=== PATIENT | female | born 1950 | race Caucasian/White ===

== ENCOUNTER → 2020-07-17 | Outpatient (CLI) | payer MEDICARE, OTHER ==
--- NOTE | 2020-07-20 09:29 | RADIOLOGY REPORT (SQ) ---
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 COMPARISON: None. TECHNIQUE: Multiplanar fat and fluid sensitive sequences precontrast including T1, T2 fat saturated or STIR. Post contrast T1 fat saturated sequences after IV gadolinium administration. CONTRAST TYPE AND DOSE: 20 mL Prohance. RENAL FUNCTION: Not needed. LIMITATIONS: None. FINDINGS: MASS SIGNAL CHARACTERISTICS: LOCATION: Palmar radial aspect of the long finger. Located in the subcutaneous tissues. Close to th e level of the PIP joint. No clear extension into the deeper tissues. SIGNAL CHARACTERISTICS AND ENHANCEMENT PATTERN: Intermediate T1. No increased signal on T2 sequences . No significant enhancement. MEASUREMENTS: 7 x 5 mm in the axial plane, best demonstrated on axial T1 sequences. Approximately 9 mm along the length of the finger. MARROW SIGNAL IN ADJACENT BONES: Digits are generally intact with normal marrow signal. Note is made of abnormal signal in the index finger metacarpal head and distal metacarpal shaft. Probable intrao sseous ganglion. OTHER SIGNIFICANT BONE, JOINT OR SOFT TISSUE FINDINGS: Flexion deformity at the ring finger PIP joint . 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 IMPRESSION: 1. Small mass in the region of interest ring finger. 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 No suggestion of deeper extension, lesion is restricted to the subcutaneous tissue s. 2. Flexion deformity in the ring finger PIP joint. 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 3. Other findings as above. Clinical notes suggest a lesion related to the thumb as well. If there is another soft tissue mass here, further imaging would be warranted as this area is not covered toda y. Correlation with radiographs would also be made, none available the time of this interpretation. TECHNICAL DOCUMENTATION: JOB ID: [id number] [email or web address]- All Rights Reserved Reading location - IP/workstation name: [email or web address]
== END ==
LOC: RAD 13:39
PROVIDERS: ATTEND Orthopaedic Surgery
DX: M19.041 Primary osteoarthritis, right hand (principal)
CPT/HCPCS: 82565; 73220; A9576

== ENCOUNTER 2020-11-19 07:01 | Day surgery (SDC) | payer MEDICARE, OTHER ==
[~2020-11-19 07:01] MED LIST: KETOROLAC TROMETHAMINE 0.45% 4 DROP/0.4 ML DROPERETTE OS PRN
--- OUTSIDE RECORDS SUMMARY | 2020-11-19 07:03 | XMS REPORT ---
:1950 [facility] [place] [address] [place] [address] Care Team Providers Name Role Phone [facility] Primary [facility] Physician VLAD Go Attending Clinician Unavailable GETACHEW Attending Clinician Unavailable VLAD LANDRUM Admitting Clinician Unavailable Allergies, Adverse Reactions, Alerts Allergy Name Allergy Status Severity Reaction(s) Onset Inactive Treat ing Comments Type Date Date Clinician Lisinopril Allergy to Active Rash substance Lisinopril Propensity Active Low Rash to adverse reactions Medications Ordered Filled Start Stop Current Ordering Indication Dosage Frequency Signature Comments Components Medication Medication Date Date Medication? Clinician (SIG) Name Name lactated No 10mL/h 10 mL/hr, Ringers 02-05 Intravenou infusion 11:00: s, 00 Continuous , Starting Mon02/05/19 at 1100, Pre-op (day of surgery)<b r>KVO<b r>Routine iohexol 2017-10- No 50mL 50 mL, (OMNIPAQUE) 12-20 Oral, 240 mg 11:00: 11:00 Once, Fri iodine/mL 00 :00 10/19/18 oral at 1100, solution 50 For 1 mL dose
Di lute in 900 ml of cold beverage (water, juice, Gatorade ...)
Ro utine NIFEdipine 2017-10 No NIFEdipine (ADALAT CC) 12-20 (ADALAT 30 MG 24 hr 10:52: CC) 30 MG tablet 42 24 hr tablet iohexol 2017-10- No 100mL 100 mL, (OMNIPAQUE) 12-20 Intravenou 350 mg 10:01: 10:05 s, Once in iodine/mL 06 :00 imaging, solution contrast, 100 mL Starting Mon10/19/18 at 1001, For 1 dose
Ro utine doxycycline 2017-10 No doxycyclin (VIBRA-TABS 1-09 e ) 100 MG 00:00: (VIBRA-TAB tablet 00 S) 100 MG tablet carboxymeth 2018- No 1% Administer Ad ministe ylcellulose 7-20 07-20 1 % to r 1 % t o sodium 00:00: 23:59 both eyes both eye s (REFRESH 00 :00 two (2) two (2) CELLUVISC) times a times a 1 % DpGe day as day as needed. needed. carboxymeth 2018- No 1% Administer Ad ministe ylcellulose 7-20 07-20 1 % to r 1 % t o sodium 00:00: 23:59 both eyes both eye s (REFRESH 00 :00 two (2) two (2) CELLUVISC) times a times a 1 % DpGe day as day as needed. needed. nifedipine No nifedipine ER 30 mg ER 30 mg tablet,exte tablet,ext nded ended release release doxycycline No doxycyclin hyclate 100 e hyclate mg tablet 100 mg tablet Durezol No Durezol 0.05 % eye 0.05 % eye drops drops Problems Condition Condition Condition Status Onset Resolution Last Treatin g Comments Name Details Category Date Date Treatment Clinician Date Lump on Lump on Problem Active 2019-10 finger Finger 0-12 00:00: 00 Ocular Ocular Problem Active rosacea Rosacea 07-13 00:00: 00 Hypertensiv Hypertensiv Problem Active e disorder e Disorder 07-13 00:00: 00 High blood High blood Condition Active 2017-102018-10-19 pressure pressure 2-21 10:52:08 00:00: 00 Ocular Ocular Condition Active 2017-102018-10-19 rosacea rosacea 2-21 10:52:08 00:00: 00 Rectal mass Rectal mass Condition Active 2017-102018-10-19 2-21 12:01:32 00:00: 00 Problem Not on file Condition Inactiv e Hyperlipide Hyperlipide Condition Active 2018-10-19 burt burt 12:21:43 Procedures Procedure Date / Time Performed Performing Clinician Gabriella lee FLEXIBLE SIGMOIDOSCOPY 2019-02-05 16:06:39 Jensen Chilel COLONOSCOPY 2018-11-01 09:34:[address] ABDOMEN PELVIS W CONTRAST 2018-10-19 15:05:02 Caroline Chilel ndro POCT CREATININE, INTERFACED 2018-10-19 14:57:00 Moisés Chilel annabel D&C OF CERVICAL STUMP 1969-10-30 00:00:00 Tonsillectomy [place] Teeth Extraction Results Test Description Test Time Test Comments Text Results Atomic Results Result Comments creatinine, POC 2020-07-17 00:00:00 Test Item Value Reference Range Comments creatinine, POC (test code = creatinine, POC) 1.0 mg/dL 0. 5-1.5 #[id number] 12:06:39FLEXIBLE SIGMOIDOSCOPY (02/05/2019 12:06 PM EDT)NarrativePerformed At Patient Name: Saranya SanchezProcedure Date: 02/05/2019 12:06 PMMRN: [id number] Date of : 11/03/1949Admit Type: OutpatientAge: 68Room: [place] [address] UN[facility]Gender: FemaleNote Status: FinalizedInstrument Name: [id number] Procedure: Flexible SigmoidoscopyIndications: High risk colon cancer surveillance: Personal history of adenoma (10 mm or greater in size), High risk colon cancer surveillance: Personal history of adenoma with high grade dysplasiaProviders: KAELYN GUO MD, RAMBO PRITCHETT, Tara Cantrell, TechnicianReferring MD:JENSEN CHILEL MD (Referring MD)Medicines: Propofol per AnesthesiaComplications: No immediate complications. Procedure: Pre-Anesthesia Assessment: - Prior to the procedure, a History and Physical was performed, and patient medications and allergies were re viewed. The patient's tolerance of previous anesthesia was alsoreviewed. The risks and benefits of the procedure and the sedation options and risks were discussed with the patient. All questions were answered, and informed consent was obtained. Prior Anticoagulants: The patient has taken no previous anticoagulant or antiplatelet agents. ASA Grade Assessment: III - A patient with severe systemic disease. After reviewing the risks and benefits,the patient was deemed in satisfactory condition to undergo the procedure. After obtaining informed consent, the scope was passed under direct vision. The Endoscope was introduced through the anus and advanced to the the descending colon. The flexible sigmoidoscopy was accomplished w ithout difficulty. The patient tolerated the procedure well. The quality of the bowel preparation was excellent. Findings: A few medium-mouthed diverticula were found in the sigmoid colon. A large post polypectomy scar was found in the rectum. The scar tissue was healthy in appearance. This was biopsied with a cold forceps for histology. Impression:- Diverticulosis in the sigmoid colon. - Post-polypectomy scar in the rectum. Biopsied.Recommendation:- Discharge patient to home (with escort). - Patient has a contact number available for emergencies. Thesigns and symptoms of potential delayed complications were discussed with the patient. Return to normal activities tomorrow. Written discharge instructions were provided to the patient. - Resume previous diet today. - Continue present medications. - Perform a colonoscopy in 5 years. Procedure Code(s): --- Professional --- 50438, Sigmoidoscopy, flexible; with biopsy, single or multipleDiagnosis Code(s): --- Professional --- Z98.890, Other specified postprocedural states Z86.010, Personal history of colonic polyps K57.30, Diverticulosis of large intes bonnie without perforation or abscess without bleeding CPT copyright 2017 [employer]. All rights reserved. The codes documented in this report are preliminary and upon personal clothing laundry aide review may be revised to meet current compliance requirements.Attending Participation: I personally performed the entire procedure. Electronically Signed By Kaelyn Landrum MD KAELYN LANDRUM MD02/05/2019 12:20:39 PMThe attending physician was present throughout the entire procedure including insertion, viewing, and removal.Number of Addenda: 0 Note Initiated On: 02/05/2019 12:06 [facility] RADProcedure NoteInterface, Rad Results In - 02/05/2019 12:21 PM EDT Patient Name: Saranya Sanchez Procedure Date: 02/05/2019 12:06 PM Date of : 1950 Admit Type: Outpatient Age: 68 Room: [place] [address] [facility]Gender: Female Note Status: Finalized Instrument Name: [id number] Procedure: Flexible Sigmoidoscopy Indications: High risk colon cancer surveillance: Personal history of adenoma (10 mm or greater in size), High riskcolon cancer surveillance: Personal history of adenoma with high grade dysplasia Providers: KAELYN LANDRUM MD, Tara KELLEY, Heavy Media Operator Referring MD: JENSEN CHILEL MD (Referring MD) Medicines: Propofol per Anesthesia Complications: No immediate complications. Procedure: Pre-Anesthesia Assessment: - Prior to the procedure, a History and Physical was performed, and patient medications and allergies were reviewed. The patient's tolerance of previous anesthesia was also reviewed. The risks andbenefits of the procedure and the sedation options and risks were discussed with the patient. All questions were answered, and informed consent was obtained. Prior Anticoagulants: The patient has takenno previous anticoagulant or antiplatelet agents. ASA Grade Assessment: III - A patient with severe systemic disease. After reviewing the risks and benefits, the patient was deemed in satisfactory condition to undergo the procedure. After obtaining informed consent, the scope was passed under direct vision. The Endoscope was introduced through the anus and advanced to the the descending colon. The flexible sigmoidoscopy was accomplished without difficulty. The patient tolerated the procedure well. The quality of the bowel preparation was excellent. Findings: A few medium-mouthed diverticula were found in the sigmoid colon. A large post polypectomy scar was found in the rectum. The scar tissue was healthy in appearance. This was biopsied with a cold forceps for histology. Impression: - Diverticulosis in the sigmoid colon. - Post-polypectomy scar in the rectum. Biopsied. Recommendation: - Discharge patient to home (with escort). - Patient has a contact number available for emergencies. The signs and symptoms of potential delayed complications were discussed with the patient. Return to normal activities tomorrow. Written discharge instructions were provided to the patient. - Resume previous diettoday. - Continue present medications. - Perform a colonoscopy in 5 years. Procedure Code(s): --- Professional --- 54820, Sigmoidoscopy, flexible; with biopsy, single or multiple Diagnosis Code(s): ---Professional --- Z98.890, Other specified postprocedural states Z86.010, Personal history of colonicpolyps K57.30, Diverticulosis of large intestine without perforation or abscess without bleeding CPTcopyright 2017 [employer]. All rights reserved. The codes documented in this report are preliminary and upon personal clothing laundry aide review may be revised to meet current compliance requirements. Attending Participation: I personally performed the entire procedure. Electronically Signed By Kaelyn Landrum MD KAELYN LANDRUM MD 02/05/2019 12:20:39 PM The attending physician was present throughout the entire procedure including insertion, viewing, and removal. Number of Addenda: 0Note Initiated On: 02/05/2019 12:06 PMPerforming OrganizationAddressCity/State/ZipcodePhone NumberC [id number] [place], [place] [id number] 09:34:01COLONOSCOPY (11/01/2018 9:34 AM) Narrative Performed At Patient Name: Saranya SanchezProcedrico Date: 11/01/2018 9:34 AM Date of : 1950 Admit Type: OutpatientAge: Room: [place] [address] UN[facility]Gender: Female Note Status: FinalizedInstrument Name: [id number] Procedure: Colonoscopy Indications: Therapeutic procedure for colon polyps Providers: KAELYN LANDRUM MD, SUZY ZELAYA, ALLY, Kali Dalton, Heavy Media Operator, NAGI HUBBARD MD (Fellow), MERRY MERRITT MD (Fellow) Referring MD:JENSEN CHILEL MD (Referring MD) Medicines: Monitored Anesthesia Care Complications: No immediate complications. Procedure: Pre-Anesthesia Assessment: - Prior to the procedure, a History and Physical was performed, and patient medications and allergies were reviewed. The patient's tolerance of previous anesthesia was also reviewed. The risks and benefits of the procedure and the sedation options and risks were discussed with the patient. All questions were answered, and informed consent was obtained. Prior Anticoagulants: The patient hastaken no previous anticoagulant or antiplatelet agents. ASA Grade Assessment: II - A patient with mild systemic disease. After reviewing the risks and benefits, the patient was deemed in satisfactory condition to undergo the procedure. After obtaining informed consent, the scope was passed under direct vision. Throughout the procedure, the patient's blood pressure, pulse, and oxygen saturations were monitored continuously. The Colonoscope was introduced through the anus and advanced to the cecum, identified by appendiceal orifice and ileocecal valve. The Endoscope was introduced through the anus and advanced to the sigmoid colon for evaluation. This was the intended extent. The colonoscopy was performed without difficulty. The patient tolerated the procedure well. The quality of the bowel preparation was excellent. The ileocecal valve, appendiceal orifice, and rectum were p hotographed. Findings: The [place] digital rectal examinations were normal. A 5 mm polyp was found in the sigmoid colon. The polyp was sessile. The polyp was removed with a hot snare. Resection and retrieval were complete. A 8cm polyp was found at 10 cm proximal to the anus. The polyp was semi-pedunculated and sessile. Preparations were made for mucosal resection. 15 mL of Orise was injected with adequate lift of the lesion from the muscularis propria. Snare mucosal resection with Yin net retrieval was performed. An 80 mm area was resected. Resection and retrieval were complete. There was no bleeding at the end of the maneuver. Biopsies were taken with a cold forceps for histology from the base of polyp to exclude malignancy andplaced in a separate container from the polypectomy. Impression:- One 5 mm polyp in the sigmoid colon, removed with a hot snare. Resected and retrieved. - One 8cm polyp at 10 cm proximal to the anus, removed using injection-lift and a hot snare. Resected and retrieved. - Biopsies were taken with a cold forceps for histology from the base of polyp to exclude malignancy. Recommendation:- Discharge patient to home (with escort). - Patient has a contact number available for emergencies. The signs and symptoms of potentialdelayed complications were discussed with the patient. Return to normal activities tomorrow. Written discharge instructions were provided to the patient. - Resume previous diet today. - Avoid aspirin and other NSAIDS for 7 days. - Continue present medications. - Await pathology results. - Repeat colonoscopy in 3-6 months for surveillance. Procedure Code(s): --- Professional --- 97144, 59,52, Colonoscopy, flexible; with endoscopic mucosal resection 34982, 52, Colonoscopy, flexible; with removal of tumor(s), polyp(s), or other lesion(s) by snare technique Diagnosis Code(s): --- Professional --- D12.5, Benign neoplasm of sigmoid colon K63.5, Polyp of colon CPT copyright 2017 [employer]. All rights reserved. The codes documented in this report are preliminary and upon personal clothing laundry aide review may be revised to meet current com pliance requirements. Attending Participation: I was present and participated during the entire procedure, including non-becerra portions. Electronically Signed By Kaelyn Landrum MD KAELYN LANDRUM MD 11/01/2018 1:20:00 PM The attending physician was present throughout the entire procedure including insertion, viewing, and removal. MD Nagi PRABHAKAR MD NAGI HUBBARD MD 11/01/2018 11:41:22 AM Number of Addenda: 0 Note Initiated On: 11/01/2018 9:34 AM [facility] Procedure Note Interface, Rad Results In - 11/01/2018 1:20 PM EST ____ Patient Name: Saranya Sanchez Procedure Date: 11/01/2018 9:34 AM Date of : 1950 Admit Type: Outpatient Age: 68 Room: [address] Gender: Female Note Status: Finalized Instrument Name: [id number] ____ Procedure: Colonoscopy Indications: Therapeutic procedure for colon polyps Providers: KAELYN LANDRUM MD, SUZY ZELAYA RN, Kali Dalton, Heavy Media Operator, NAGI HUBBARD MD (Fellow), MERRY MERRITT MD (Fellow) Referring MD: JENSEN CHILEL MD (Referring MD) Medicines: Joy tored Anesthesia Care Complications: No immediate complications. ____ Procedure: Pre-Anesthesia Assessment: - Prior to the procedure, a History and Physical was performed, and patient medications and allergies were reviewed. The patient's tolerance of previous anesthesia was also reviewed. The risks and benefits of the procedure and the sedation options and risks were discussed with the patient. All questions were answered, and informed consent was obtained. Prior Anticoagulants: The patient has taken no previous anticoagulant or antiplatelet agents. ASA Grade Assessment: II - A patient with mild systemic disease. After reviewing the risks and benefits, the patient was deemed in satisfactory condition to undergo the procedure. After obtaining informed consent, the scope was passed under direct vision. Throughout the procedure, the patient's blood pressure, pulse, and oxygen saturations were monitored continuously. The Colonoscope was introduced through the anus and advanced to the cecum, identified by appendiceal orifice and ileocecal valve. The Endoscope was introduced through the anus and advanced to the sigmoid colon for evaluation. This was the intended extent. The colonoscopy was performed without difficulty. The patient tolerated the procedure well. The quality of the bowel preparation was excellent. The ileocecal valve, appendiceal orifice, and rectum were photographed. Findings: The perianal and digital rectal examinations were normal. A 5 mm polyp was found in the sigmoid colon. The polyp was sessile. The polyp was removed with a hot snare. Resection and retrieval were complete. A 8cm polyp was found at 10 cm proximal to the anus. The polyp was semi-pedunculated and sessile. Preparations were made for mucosal resection. 15 mL of Orise was injected with adequate lift of the lesion from the muscularis propria. Snare mucosal resection with Yin net retrieval was performed. An 80 mm area was resected. Resection and retrieval were complete. There was no bleeding at the end of the maneuver. Biopsies were taken with a cold forceps for histology from the base of polyp to exclude malignancy and placed in a separate container from the polypectomy. Impression: - One 5 mm polyp in the sigmoid colon, removed with a hot snare. Resected and retrieved. - One 8cm polyp at 10 cm proximal to the anus, removed using injection-lift and a hot snare. Resected and retrieved. - Biopsies were taken with a cold forceps forhistology from the base of polyp to exclude malignancy. Recommendation: - Discharge patient to home (with escort). - Patient has a contact number available for emergencies. The signs and symptoms of potential delayed complications were discussed with the patient. Return to normal activities tomorrow. Written discharge instructions were provided to the patient. - Resume previous diet today. - Avoid aspirin and other NSAIDS for 7 days. - Continue present medications. - Await pathology results. - Repeat colonoscopy in 3-6 months for surveillance. Procedure Code(s): --- Professional --- 54894, 59,52, Colonoscopy, flexible; with endoscopic mucosal resection 35869, 52, Colonoscopy, flexible; with removal of tumor(s), polyp(s), or other lesion(s) by snare technique Diagnosis Code(s): --- Professional --- D12.5, Benign neoplasm of sigmoid colon K63.5, Polyp of colon CPT copyright 2017 [employer]. All rights reserved. The codes documented in this report are preliminary and upon personal clothing laundry aide review may be revised to meet current compliance requirements. Attending Participation: I was present and participated during the entire procedure, including non-becerra portions. Electronically Signed By Kaelyn Landrum MD KAELYN LANDRUM MD 11/01/2018 1:20:00 PM The attending physician was present throughout the entire procedure including insertion, viewing, and removal. MD Nagi PRABHAKAR MD NAGI HUBBARD MD 11/01/2018 11:41:22 AM Number of Addenda: 0 Note Initiated On: 11/01/2018 9:34 AM Performing Organization Address City/State/Zipcode Phone Number [facility] [address] [facility] [place] [address]#[id number] 10:47:22CT Abdomen Pelvis with contrast (10/19/2018 10:05 AM EST)SpecimenImpressionsPerformed At Enhancing polypoid lesion in the high rectum. Subcentimeter hypodensities in the liver too small to characterizeon CT. Additionally there are bilateral adrenal nodules which are indeterminate, these lesions couldbe evaluated on MRI. A 2.7 x 2 cm cystic lesion posterior to the inferior esophagus in the retrocrural space. This is likely benign and could represent a retrocrural cystic lesion versus dilated lymphatic channel. This could also be better evaluated with MRI. [facility] RADNarrativePerformed AtEXAM: CT abdomen and pelvis with contrastDATE: 10/19/2018 10:05 AMACCESSION: [id number]: 10/19/2018 10:47 AMINTERPRETATION LOCATION: [facility] [place] CLINICAL INDICATION: 68 years old Female with MALIGNANT NEOPLASM OF RECTUM-K62.9-Rectal mass COMPARISON: None TECHNIQUE: A spiral CT scan was obtained with IV contrast from the lung bases to the pubic symphysis.Images were reconstructed in the axial plane. Coronal and sagittal reformatted images were also provided for further evaluation. FINDINGS: The lung bases are clear. No pleural effusion. LIVER: Subcentimeter hypodensities are too small to characterize on CT (2:9, 21).GALLBLADDER: UnremarkableSPLEEN: UnremarkablePANCREAS:UnremarkableADRENALS: Left adrenal nodule measures 1.1 x 0.8 cm and right adrenal nodularity measures 2.6 x 0.8 cm (coronal 4:50). Bilateral adrenal glands also demonstrate diffuse thickening.KIDNEYS: No hydronephrosis. No renal calculi.: The bladder is unremarkable.Reproductive organs unremarkable. Bilateral dilatedcollateral vessels which are more prominent on the left side. BOWEL: Possible enhancing polypoid lesion measuring 5.3 x 2.9 cm in the high rectum (2:66, 5:68).Diverticulosis of the sigmoid colon without signs of diverticulitis. No evidence of bowel obstruction. The appendix is within normal limits.No free air or free fluid. VASCULATURE: The aorta, celiac, SMA, and DOROTHEA are patent and normal in caliber.Atherosclerotic calcification throughout the aorta. The portal vein, SMV and splenic vein are patent. LYMPH NODES: No enlarged lymph nodes in the abdomen or pelvis. A 2.7 x 2 cm cystic lesion posterior to the inferior esophagus in the retrocrural space. BONES/SOFT TISSUE: No acute osseous abnormality or suspicious osseous lesion. Degenerative changes in the lower lumbar spine. [facility] RADProcedure NoteInterface, Rad Results In - 10/19/2018 6:11 PM ESTEXAM: CT abdomen and pelvis with contrast DATE: 10/19/2018 10:05 AM DICTATED: 10/19/2018 10:47 AM INTERPRETATION LOCATION: [facility] [place] CLINICAL INDICATION: 68 years old Female with MALIGNANT NEOPLASM OF RECTUM-K62.9-Rectalmass COMPARISON: None TECHNIQUE: A spiral CT scan was obtained with IV contrast from the lung bases to the pubic symphysis. Images were reconstructed in the axial plane. Coronal and sagittal reformatted images were also provided for further evaluation. FINDINGS: The lung bases are clear. No pleural effusion. LIVER: Subcentimeter hypodensities are too small to characterize on CT (2:9, 21). GALLBLADDER: Unremarkable SPLEEN: Unremarkable PANCREAS:Unremarkable ADRENALS: Left adrenal nodule measures 1.1 x 0.8 cm and right adrenal nodularity measures 2.6 x 0.8 cm (coronal 4:50). Bilateral adrenal glands also demonstrate diffuse thickening. KIDNEYS: No hydronephrosis. No renal calculi. : The bladder isunremarkable. Reproductive organs unremarkable. Bilateral dilated collateral vessels which are more prominent on the left side. BOWEL: Possible enhancing polypoid lesion measuring 5.3 x 2.9 cm in the high rectum (2:66, 5:68). Diverticulosis of the sigmoid colon without signs of diverticulitis. No evidence of bowel obstruction. The appendix is within normal limits.No free air or free fluid. VASCULATURE: The aorta, celiac, SMA, and DOROTHEA are patent and normal in caliber. Atherosclerotic calcification throughout the aorta. The portal vein, SMV and splenic vein are patent. LYMPH NODES: No enlarged lymph nodes in the abdomen or pelvis. A 2.7 x 2 cm cystic lesion posterior to the inferior esophagus in theretrocrural space. BONES/SOFT TISSUE: No acute osseous abnormality or suspicious osseous lesion. Degenerative changes in the lower lumbar spine. IMPRESSION: Enhancing polypoid lesion in the high rectum. Subcentimeter hypodensities in the liver too small to characterize on CT. Additionally there are bilateral adrenal nodules which are indeterminate, these lesions could be evaluated on MRI. A 2.7 x 2 cm cystic lesion posterior to the inferior esophagus in the retrocrural space. This is likely benign and could represent a retrocrural cystic lesion versus dilated lymphatic channel. This could also be better evaluated with MRI. Performing OrganizationAddressCity/State/ZipcodePhone NumberC [id number] [facility] [place] [address]#[id number] 09:57:00 Test Item Value Reference Range Comments Creatinine Whole Blood, POC (test code = 0.9 mg/dL 0.7- 1. 1 mg/dL Creatinine Whole Blood, POC) eGFR MDRD Af Amer (test code = eGFR MDRD Af >=60 >=60 mL/min/1.73m2 Amer) eGFR MDRD Non Af Amer (test code = eGFR MDRD >=60 >=6 0 mL/min/1.73m2 Non Af Amer) Assessments Condition Name Status Diagnosis Date Treating Clinici an Lump on finger Active 2020-08-10 10:44:09 Lump on finger Active 2020-07-13 14:09:25 Encounters Start End Encounter Admission Attending Care Care Encounter Date/Time Date/Time Type Type Clinicians Facility Department ID 2020-08-10 2020-08-10 Delon Cortes [id number] 00:00:00 00:00:00 [facility] DO: [address] [facility], [address], [place] [address], Ph. 2020-07-13 2020-07-13 Delon Cortes [id number]_ 2019 00:00:00 00:00:00 [facility]14 DO: [address] [facility], [address], [place] [address], Ph. 2019-02-05 2019-02-05 KAELYN MCDERMOTT [facility] [id number]_ 09:49:00 13:54:00 [id number] 2019-02-05 2019-02-05 [facility] [id number] 09:49:00 13:54:00 2019-02-05 2019-02-05 KAELYN MCDERMOTT [facility] [id number]_ 11:00:00 11:00:00 [id number] 2019-02-05 [facility]02[id number] _ 00:00:00 00:00:00 [id number] 2019-02-04 2019-02-04 [facility] [id number] _ 00:00:00 00:00:00 [id number] 2018-11-07 2018-11-07 Out[facility] [id number] 00:00:00 00:00:00 2018-11-01 2018-11-01 KAELYN MCDERMOTT [facility] [id number]_ 08:30:00 12:23:00 [id number] 2018-11-01 2018-11-01 [facility] [id number] 08:30:00 12:23:00 2018-11-01 2018-11-01 KAELYN HARDIN [facility] [id number]_ 09:30:00 09:30:00 000 2018-11-01 2018-11-01 S [facility] [id number] _ 00:00:00 00:00:00 [id number] 2018-10-26 Outpatient [facility] [id number]_ 00:00:00 00:00:00 [id number] 2018-10-26 Outpatient [facility] [id number]_ 00:00:00 00:00:00 [id number] 2018-10-26 Outpatient [facility] [id number]_ 00:00:00 00:00:00 [id number] 2018-10-19 Outpatient EL GETACHEW [facility] [id number]_ 08:31:47 23:59:00 JENSEN [id number] 2018-10-19 2018-10-19 [facility] [id number] 08:31:47 23:59:00 2018-10-19 2018-10-19 Outpatient [facility] [id number]_ 10:41:01 12:04:20 [id number] 2018-10-19 2018-10-19 Outpatient [facility] [id number]_ 10:41:01 12:04:20 [id number] 2018-10-19 2018-10-19 Outpatient [facility] [id number]_ 00:00:00 00:00:00 [id number] 2018-10-19 Outpatient [facility] [id number]_ 00:00:00 00:00:00 [id number] 2018-10-19 [facility] [id number] 00:00:00 00:00:00 2018-10-15 2018-10-15 Outpatient [facility] [id number]_ 00:00:00 00:00:00 [id number] 2018-10-11 [facility] [id number] 00:00:00 00:00:00 2018-10-11 2018-10-11 [facility] [id number] 00:00:00 00:00:00 Payers Payer Name Policy Type Policy Number Effective Date Expiration D ate MEDICARE PART A AND [id number] 2015 00:00:00 PART B FOR LIFE [id number] 2017 00:00:00 MEDICARE SUPPLEMENT Plan of Treatment Planned Activity Planned Date Details Comments Future Scheduled Test [code = ] Future Scheduled Test [code = ] Future Scheduled Test [code = ] Future Scheduled Test [code = ] Future Scheduled Test [code = ] Future Scheduled Test [code = ] Future Scheduled Test [code = ] Future Scheduled Test [code = ] Future Scheduled Test [code = ] Future Scheduled Test [code = ] Future Scheduled Test [code = ] Future Scheduled Test [code = ] Future Scheduled Test [code = ] Future Scheduled Test [code = ] Future Scheduled Test [code = ] Future Scheduled Test [code = ] Future Scheduled Test [code = ] Future Scheduled Test [code = ] Future Scheduled Test [code = ] Social History Social Habit Start Date Stop Date Comments History of tobacco use 1978-10-19 00:00:00 Alcohol intake Tobacco smoking status [facility] 2018-10-19 00:00:00 2018-10-19 00:00 :00 Cigarettes smoked current (pack per 2018-10-19 00:00:00 00:00:00 day) - Reported Cigarette pack-years 2018-10-19 00:00:00 2018-10-19 00:00:00 Alcohol Comment 2018-10-19 00:00:00 2018-10-19 00:00:00 Smoking Status Start Date Stop Date Light Tobacco Smoker Vital Signs Vital Name Observation Time Observation Value Comments Height 2020-08-10 00:00:00 70 [in_i] BMI (Body Mass Index) 2020-08-10 00:00:00 21.5 kg/m2 Body Weight 2020-08-10 00:00:00 150 [lb_av] Height 2020-07-13 00:00:00 70 [in_i] BMI (Body Mass Index) 2020-07-13 00:00:00 21.5 kg/m2 Body Weight 2020-07-13 00:00:00 150 [lb_av] Systolic blood pressure 2019-02-05 12:55:00 136 mm[Hg] Diastolic blood pressure 2019-02-05 12:55:00 96 mm[Hg] Heart rate 2019-02-05 12:55:00 66 /min Respiratory rate 2019-02-05 12:55:00 17 /min Oxygen saturation in Arterial blood by 2019-02-05 12:55:00 98 % Pulse oximetry Body temperature 2019-02-05 12:23:00 36.17 Bere Body height 2019-02-05 10:22:00 177.8 cm Body weight 2019-02-05 10:22:00 68.493 kg SYSTOLIC BLOOD PRESSURE 2018-11-01 11:45:00 161 mm[Hg] DIASTOLIC BLOOD PRESSURE 2018-11-01 11:45:00 101 mm[Hg] HEART RATE 2018-11-01 11:45:00 72 /min RESPIRATORY RATE 2018-11-01 11:45:00 23 /min OXYGEN SATURATION 2018-11-01 11:45:00 96 % BODY TEMPERATURE 2018-11-01 11:15:00 36.39 [facility] Discharge Instructions 1. Lump on finger Discussion Note: None recorded. Patient educational handouts: No information available.
[2020-11-19] MEDS ORDERED: TRYPAN BLUE 0.06 % OPH SOLN 0.5 ML DISP.SYRIN ONE (07:18)
[2020-11-19] MEDS: CYCLOPENTOLATE 0.2%/PHENYLEPHRINE 1% OPH SOLN 2 ML OS PRN ×3 (07:21→07:41)
[2020-11-19] MEDS: BESIFLOXACIN HCL 0.6% OPH SUSP 5 ML BOTTLE OS PRN ×4 (07:21→08:10)
[2020-11-19] MEDS: TROPICAMIDE 1% OPH SOLN 15 ML OS PRN ×4 (07:21→07:41)
[2020-11-19] MEDS ORDERED: FENTANYL CITRATE INJ/PF 100 MCG/2 ML AMPUL ONE (07:32)
[2020-11-19] MEDS ORDERED: MIDAZOLAM 2 MG/2 ML INJ ONE (07:32)
[2020-11-19] MEDS: TETRACAINE HCL 0.5% OPH SOLN 4 ML OS PRN ×2 (07:41→07:48)
[2020-11-19] MEDS: EPINEPHRINE INJ/PF 1 MG/1 ML AMPULE ONE ×2 (07:55→07:58)
[2020-11-19] MEDS: CHONDR SU A NA/HYALUR INTRAOC KIT (SURGICARE) ONE ×2 (07:55→07:58)
[2020-11-19] MEDS: LIDOCAINE 1%/PHENYLEPHRINE 1.5% 1 ML VIAL ONE ×2 (07:55→07:58)
[2020-11-19] MEDS: DORZOLAMIDE HCL 2%/TIMOLOL MALEAT 0.5% OPH SOLN 10 ML OS PRN ×2 (08:10)
[2020-11-19] MEDS: PREDNISOLONE ACETATE 1% OPH SUSP 5 ML OS PRN ×2 (08:10)
--- NOTE | 2020-11-20 11:39 | Operative Report ---
Operative Report-[facility] Operative Report: DATE OF SURGERY: 11/19/2020 PREOPERATIVE DIAGNOSIS: Cataracts, left eye POSTOPERATIVE DIAGNOSIS: Cataract, left eye OPERATION: Cataract extraction with insertion of an IOL of the left eye. Intraocular Lens Model: [19.0 SN 60 WF] Patient underwent surgery for difficulty seeing small print SURGEON: Prashant Driscoll MD ANESTHESIA: Topical PROCEDURE: After obtaining appropriate consent, the patient's left eye was prepped and draped in a sterile fashion as well as the surgeon in the sterile manner and cataract surgery was started. First a paracentesis blade was used to make a side-port incision. Viscoelastic was used to inflate the anterior chamber. Next a 2.4 mm incision was made with a 2.4 mm blade, clear corneal temporarily. A continuous capsulorrhexis was made using a cystotome and Utrata forceps. Following this hydrodissection was carried out to make the lens fully loose and mobile and it was rotated 90 degrees. Following this, a divide and conquer technique was used to phacoemulsify the lens. The remaining cortex was removed with an irrigation/aspiration. Provisc was instilled into the capsular bag to inflate the bag.The intraocular lens was placed. The remaining viscoelastic material was removed with irrigation/aspiration. Following this, the incision was found to be watertight. Besivance and Cosopt was instilled into the eye and a protective shield was placed over the eye. The patient was returned to the postoperative recovery in a stable condition.
== END 2020-11-19 08:43 | disposition home or self-care (01) ==
LOC: SC 07:01
PROVIDERS: ATTEND Internal Medicine
DX: H25.12 Age-related nuclear cataract, left eye (principal); H01.00B Unspecified blepharitis left eye, upper and lower eyelids; H01.00A Unspecified blepharitis right eye, upper and lower eyelids; H04.123 Dry eye syndrome of bilateral lacrimal glands; L71.8 Other rosacea; H43.813 Vitreous degeneration, bilateral; F17.210 Nicotine dependence, cigarettes, uncomplicated; I10 Essential (primary) hypertension
CPT/HCPCS: 66984; 00142; V2632; J2250; J3490 ×2; A9270; J0171; J3010; 142